=== PATIENT | male | born 1985 | race Caucasian/White ===

== ENCOUNTER → 2018-08-31 | Outpatient (CLI) | payer OTHER ==
--- NOTE | 2018-08-31 08:27 | RAD ---
CT of the abdomen and pelvis without contrast, 08/31/2018: HISTORY: Left flank pain and hematuria Noncontrast scans were obtained utilizing the renal stone protocol. There is a tiny calculus at the upper pole the left kidney. The renal collecting systems and ureters are not dilated. No ureteral calculus is evident. The urinary bladder is poorly distended but shows no specific abnormality. The unopacified liver is unremarkable. No gallbladder abnormality is seen. The pancreas is unremarkable. The spleen is of normal size. No adrenal abnormality is detected. No abdominal or pelvic adenopathy is seen. The bowel loops are not dilated. There is a moderate amount of stool in the rectosigmoid colon. The appendix is visualized. It contains a small amount of radiopaque material with no evidence of dilatation or inflammation. No free air or free fluid is evident in the abdomen or pelvis. Mild degenerative changes are noted in the lower lumbar spine with posterior disc protrusion and spurring at L4-5. IMPRESSION: 1. Tiny left intrarenal calculus. 2. No obstructing urinary tract calculus is identified. PQRS Compliance Statement: One or more of the following individualized dose reduction techniques were utilized for this examination: 1. Automated exposure control 2. Adjustment of the mA and/or kV according to patient size 3. Use of iterative reconstruction technique Electronically signed by: Richie Dueñas MD (08/31/2018 8:23 AM) [facility]
== END | disposition home or self-care (01) ==
LOC: CT 07:41
PROVIDERS: ATTEND Family Medicine
DX: N20.0 Calculus of kidney (principal); M51.26 Other intervertebral disc displacement, lumbar region; M47.896 Other spondylosis, lumbar region
CPT/HCPCS: 74176